=== PATIENT | male | born 1995 | race African-American/Black ===

== ENCOUNTER 2017-11-28 21:06 | Emergency (ER) | payer MEDICAID ==
--- NOTE | 2017-11-28 21:25 | ED Physician Chart ---
ED Chief Complaint/HPI - Patient Information Date Seen:: 11/28/17 Time Seen:: 09:30 Chief Complaint:: lt cheek pain swelling History of Present Illness:: 22 yr old male with more than one day hx of lt gum pain and cheek swelling no fewver or cough no headache or dizziness Allergies:: Allergies Allergy/AdvReac Type Severity Reaction Status Date / Time No Known Allergies Allergy Verified 11/28/17 21:19 Historian:: Patient ED Review of Systems - Review of Systems General/Constitutional: No fever Skin: No skin lesions Head: No headache Eyes: No loss of vision ENT: No earache Neck: No neck pain Cardio Vascular: No chest pain Pulmonary: No SOB GI: No vomiting G/U: No dysuria Musculoskeletal: No bone or joint pain Endocrine: No polyuria Psychiatric: No prior psych history Hematopoietic: No bruising Allergic/Immuno: No urticaria Neurological: No syncope ED Past Medical History - Past Medical History Past Medical History: No significant medical hx ED Physical Exam - Physical Examination General/Constitutional: Well-developed, well-nourished Head: Atraumatic Eyes: Lids, conjuctiva normal Skin: Nl inspection, No rash ENMT: External ears, nose nl Neck: Nontender Respiratory: Nl effort/Exclusion Cardio Vascular: No murmur, gallop, rubs GI: No tenderness/rebounding/guarding : No CVA tenderness Extremities: No tenderness or effusion Neuro/Psych: Alert/oriented Misc: Normal back ED Assessment - Assessment General Assessment: lt cheek swelling and gum pain r/o infection
== END 2017-11-28 21:45 | disposition home or self-care (01) ==
LOC: ER 21:06
DX: R22.0 Localized swelling, mass and lump, head (principal); K13.79 Other lesions of oral mucosa
CPT/HCPCS: J0696; Z7502; Z7610